=== PATIENT | female | born 1995 | race Two or more races ===

== ENCOUNTER 2020-12-27 20:46 | Emergency (ER) | payer SELFPAY ==
[~2020-12-27] VITALS: Ht 160 cm; Wt 78.0 kg
[2020-12-27 20:59] VITALS: BP 134/71
== END 2020-12-27 21:51 | disposition left against medical advice (07) ==
LOC: ER 20:46
DX: R11.2 Nausea with vomiting, unspecified (principal); R42 Dizziness and giddiness; Z53.21 Procedure and treatment not carried out due to patient leaving prior to being seen by health care provider